=== PATIENT | male | born 1955 ===

== ENCOUNTER 2017-05-13 13:44 | Day surgery (SDC) | payer OTHER ==
[2017-05-12 08:52] VITALS: BMI 27.9
[2017-05-13] MEDS ORDERED: Iohexol 350mgl/ml 50 ML ONE (14:18)
[2017-05-13] MEDS ORDERED: Lidocaine 2% Inj (20ml) ONE (14:18)
[2017-05-13] MEDS ORDERED: Midazolam 2 MG/2 ML VIAL ONE (14:19)
[2017-05-13] MEDS ORDERED: HEPARIN SODIUM/NS 2,000 ML IV ONE (14:19)
[2017-05-13] MEDS ORDERED: Nitroglycerin 50mg in D5W 50 MG/250 ML BOTTLE IV ONE (14:27)
[2017-05-13] MEDS ORDERED: Iohexol 350 MG/100 ML VIAL ONE ×2 (15:13→15:37)
[2017-05-13] MEDS ORDERED: Sodium Chloride 0.9% 1,000 ML IV SCH (16:30)
[2017-05-13] MEDS ORDERED: Bacitracin 500 Units/gm Oint Foilpak UD TOP ONE (20:08)
[2017-05-13 23:30] VITALS: BP 95/47; PULSE 61; RESP 14; TEMP 100.3; O2SAT 97
--- NOTE | 2017-05-14 08:39 | CARDCATH ---
PROCEDURE DATE: 05/13/2017 INDICATIONS: Non-ST elevation PA. PROCEDURE PERFORMED: Left heart catheterization with selective left and right coronary angiogram, left ventriculogram, PTCA stenting of the mid left circumflex coronary artery deployment of 4.0 x 18 mm Resolute drug-eluting stent, postdilatation with compliant with degeneration from 99% down to 0% SARA-3 flow. PTCA stenting of proximal PDA with deployment of 3.0 x 26 mm Resolute drug-eluting stent, degeneration from 95% down to of 0% SARA-3 flow. A 6-Irish right radial arterial access, wrist band for hemostasis. ANGIOGRAPHIC FINDINGS: Left main large size vessel bifurcates into LAD and left circumflex coronary artery, LAD has mid 40% to 50% nonobstructive lesion, gives off a small diagonal branch and continues into the AV and the anterior wall has medium sized vessel and feeding to other smaller diagonal branches and septal company controller. Left circumflex is a large size vessel, runs in the AV groove, is superdominant left system with mid 99% stenotic lesion, proximal PDA which is fed from the distal left circumflex has a calcified 95% stenosis with SARA-1 to 2 flow noted. Left PDA has moderate diffuse disease, 40% to 50% stenosis. RCA small, nondominant. IMPRESSION: Severe mid left circumflex stenosis, severe proximal left patent ductus arteriosus stenosis intervention performed. Percutaneous transluminal coronary angioplasty stenting of mid circumflex with 4.0 x 18 mm Resolute drug eluting stent, postdilatation of the , balloon degeneration from 99% down to 0%, SARA-3 flow. Percutaneous transluminal coronary angioplasty stenting of proximal left patent ductus arteriosus deployment of 3.0 x 26 Resolute drug-eluting stent degeneration from 95% down to 0%, SARA-3 flow. RECOMMENDATIONS: Dual antiplatelet therapy for one year, guideline dietary therapy for CAD, aspirin, statins, beta-kimberley, nitrates, and YONI inhibitor. Left ventricular ejection fraction on LV gram was noted to 50% to 59% with mild basal hypokinesis. Martínez Rashid MD
== END 2017-05-13 22:30 | disposition short-term general hospital (02) ==
LOC: CATH 13:44 → CCU 17:00 → CATH 22:30
PROVIDERS: ATTEND Internal Medicine Interventional Cardiology
DX: I21.4 Non-ST elevation (NSTEMI) myocardial infarction (principal); I25.10 Atherosclerotic heart disease of native coronary artery without angina pectoris; Q25.0 Patent ductus arteriosus